=== PATIENT | female | born 1965 | race Caucasian/White ===

== ENCOUNTER 2016-11-11 05:53 | Day surgery (SDC) | payer OTHER ==
[2016-11-05 09:35] VITALS: BMI 25.7
[~2016-11-11 05:53] MED LIST: DEXAMETHASONE SOD PHOSPHATE 10 MG/ML 1 ML VIAL IV ONE; HYDROmorphone 1 MG/ML 1 ML SYRINGE IVP PRN; LACTATED RINGERS 1,000 ML IV SCH; MIDAZOLAM 2 MG/2 ML VIAL IV PRN; ONDANSETRON 4 MG/2 ML VIAL IVP ONE
[2016-11-11] MEDS ORDERED: LACTATED RINGERS 1,000 ML IV ONE (06:40)
[2016-11-11] MEDS ORDERED: LIDOCAINE 1% 20 ML VIAL (10MG/ML) FOR IV START SQ ONE (06:41)
[2016-11-11] MEDS ORDERED: SCOPOLAMINE 1.5MG/72HR PATCH TRANSDERM ONE (06:53)
[2016-11-11] MEDS ORDERED: SODIUM CHLORIDE 0.9% 100 ML BAG ONE (07:27)
[2016-11-11] MEDS ORDERED: LIDOCAINE 1% INJ 10MG/ML (20 ML MDV) ONE (07:27)
[2016-11-11] MEDS ORDERED: fentaNYL (PF) 50 MCG/ML 2 ML AMP ONE (07:27)
[2016-11-11] MEDS ORDERED: MIDAZOLAM 2 MG/2 ML VIAL ONE (07:27)
[2016-11-11] MEDS ORDERED: VASOPRESSIN 20 UNIT/ML 1 ML VIAL ONE (07:27)
[2016-11-11] MEDS ORDERED: ceFAZolin 1,000 MG VIAL ONE (07:27)
[2016-11-11] MEDS ORDERED: PROPOFOL 10 MG/ML 20 ML VIAL IV ONE (07:27)
[2016-11-11] MEDS: ceFAZolin 2 GM in SODIUM CHLORIDE 0.9% 100 ML IVPB ONE ×2 (07:28→07:38)
[2016-11-11] MEDS ORDERED: VASOPRESSIN 20 UNIT/ML 1 ML VIAL IV ONE ×2 (07:52)
[2016-11-11] MEDS ORDERED: BACITRACIN 500 UNIT/GM OINT 28.4 GM TUBE TOPICAL ONE (07:52)
--- NOTE | 2016-11-11 08:39 | P.OP ---
Date of Procedure: 11/11/16 Preoperative Diagnosis: Third degree cervical uterine prolapse Fourth degree cystocele Second-degree rectocele Postoperative Diagnosis: Same Procedure(s) Performed: Total vaginal hysterectomy with anterior colporrhaphy Implants: Anesthesia: spinal Surgeon: Kaitlynn Padilla Toolmaker #1: Joanne Stahl Estimated Blood Loss (ml): 15 IV fluids (ml): 700 Urine output (ml): 200 Pathology: other (Cervix and uterus) Condition: stable Disposition: PACU Indications for Procedure: Symptomatic pelvic prolapse Operative Findings: 30 cervical uterine prolapse, fourth degree cystocele, second-degree rectocele. Small and grossly normal-appearing uterus. Normal-appearing bilateral ovaries. Description of Procedure: After the patient and her family were met in the preoperative holding area and all questions were answered, the patient was taken to the operating room where anesthetic was administered without incident. She was in positioned, prepped and draped in the dorsal lithotomy position. The bladder was drained for approximately 150 mL of clear urine. Weighted speculum was placed in the vagina and the cervix was grasped anteriorly with a single-tooth tenaculum. Dilute vasopressin solution was infused into the vaginal mucosa anteriorly and posteriorly. A circumferential incision was made with the scalpel about the cervix. The anterior and posterior vaginal causes were bluntly dissected away from the underlying cervix. The posterior peritoneum was placed on countertraction and the posterior cul-de-sac was entered sharply. Posterior peritoneum was tagged with a 2-0 Vicryl suture. Long weighted speculum was then placed. The bladder was further advanced anteriorly bluntly. Taurus clamps were utilized to clamp the uterosacral ligaments which were then cut and suture ligated bilaterally. 2-0 Vicryl suture was utilized. The uterine vasculature was then clamped cut and suture ligated bilaterally. The uterus is very small and following ligation of the uterine vasculature the posterior fundus was delivered. A window was made in the anterior peritoneum. The cornual pedicles were clamped, cut and doubly suture ligated. The right and left ovaries were visualized and no gross abnormalities were appreciated. The pedicles were inspected and noted to be hemostatic. The long weighted speculum was removed and the short weighted speculum was replaced. The peritoneum was then closed in a pursestring fashion. The uterosacral ligaments were reapproximated in the midline on incorporating vaginal mucosa to suspend the vagina. The vaginal cuff was then closed posteriorly in an interrupted fashion with 0 Vicryl suture. Attention was then turned to the anterior repair. The anterior vaginal mucosa was delineated using Allis clamps. Dilute vasopressin solution was then injected in the anterior vaginal mucosa. Metzenbaum scissors were utilized to undermine the anterior vaginal mucosa which was then incised in the midline to a level of approximately 2 cm below the urethra. The underlying vesicovaginal tissue was bluntly from the vaginal mucosa. Valiente catheter was then placed and an additional 50 mL of clear urine was obtained. 2-0 Vicryl suture was then utilized to reapproximate the vesicovaginal fascia in an interrupted fashion. Approximate 4 sutures were placed to correct the defect. Excess vaginal mucosa was then trimmed. The vaginal Koza was reapproximated in the midline in a running locked fashion. The vaginal cuff was inspected and was noted to be hemostatic. Bacitracin- soaked packing was then placed in the vagina. Urine in the Valiente catheter was clear. All counts reported to me as correct by the operating room staff. The patient was awoken from anesthetic and transported to the recovery area in stable condition.
[2016-11-11] MEDS ORDERED: ZOLPIDEM 5 MG TAB PO PRN (09:03)
[2016-11-11] MEDS ORDERED: SIMETHICONE 80 MG CHEWABLE PO PRN (09:03)
[2016-11-11] MEDS ORDERED: KETOROLAC 30 MG/ML 1 ML VIAL IVP PRN (09:03)
[2016-11-11] MEDS ORDERED: Acetaminophen-Codeine 300-30mg TAB PO PRN ×2 (09:03)
[2016-11-11] MEDS ORDERED: LACTATED RINGERS 1,000 ML IV SCH (09:03)
[2016-11-11] MEDS ORDERED: IBUPROFEN 600 MG TAB PO PRN (09:03)
[2016-11-11] MEDS ORDERED: ONDANSETRON 4 MG/2 ML VIAL IVP PRN (09:03)
[2016-11-11] MEDS ORDERED: METOCLOPRAMIDE 5 MG/ML 2 ML VIAL IVP PRN (09:03)
[2016-11-11] MEDS: SENNOSIDES-DOCUSATE SODIUM 1 EACH TAB PO SCH ×2 (09:42→20:26)
[2016-11-11] MEDS: diphenhydrAMINE 50 MG/ML 1 ML VIAL IVP PRN ×2 (16:24→22:34)
[2016-11-12 06:18] LABS: Basophils % (A) 0 %; CH 32.4; CHCM 35.4; Eosinophils # (A) 0.1 k/uL (0-0.7); Eosinophils % (A) 2 %; HCT 35.9 % (34.0-46.0); HDW 2.73; HGB 12.7 gm/dL (11.4-16.0); Luc # (Auto) 0.13; Luc % (Auto) 2; Lymphocytes # (A) 1.8 k/uL (1.0-4.8); Lymphocytes % (A) 21 %; MCH 32.6 pg (25.0-35.0); MCHC 35.5 g/dL (31.0-37.0); MCV 91.9 fL (80.0-100.0); Mean Platelet Volume 6.6; Monocytes # (A) 0.4 k/uL (0-1.0); Monocytes % (A) 5 %; Neutrophils # (A) 6.1 k/uL (1.3-7.7); Neutrophils % (A) 71 %; RDW 12.2 % (11.5-15.5); WBC 8.6 k/uL (3.8-10.6); WBC (Perox) 9.03
--- NOTE | 2016-11-12 07:46 | P.DS ---
Providers Expected date of discharge: 11/12/16 Attending physician: Kaitlynn Padilla Primary care physician: Jim Gaytan - Discharge Diagnosis(es) (1) Cystocele with uterine prolapse Current Visit: Yes Status: Acute Hospital Course: This is a 51-year-old woman with symptomatic cystocele and uterine prolapse who is admitted on 11/11/2016 for surgical management. She went to the operating room where she underwent an uncomplicated total vaginal hysterectomy with anterior colporrhaphy done under a spinal anesthetic. Findings at the time of surgery were significant for fourth degree cystocele and third degree cervical uterine prolapse and second-degree rectocele. Please see the operative report for details. Her postoperative course was unremarkable. By the evening of postoperative day 0 she was tolerating a general diet and had ambulated in the hallways. Her pain was well-controlled with her spinal anesthetic. By the morning of postoperative day #1 she continued to do well. Her vital signs were stable. Her postop day 1 hemoglobin was 12.9. Her vaginal packing was removed and she had a scant amount of vaginal bleeding. Her Valiente catheter was removed and voiding trials were initiated. She continued to tolerate a general diet without nausea or vomiting. She is ambulating without difficulty. She was discharged home pending successful voiding trials. Procedures: Total vaginal hysterectomy with anterior colporrhaphy Patient Condition at Discharge: Good Plan - Discharge Summary New Discharge Prescriptions: Acetaminophen-Codeine 300-30mg [Tylenol w/codeine #3] 1 each PO Q4HR PRN #20 tab PRN Reason: Moderate Pain Discharge Medication List Calcium/Magnesium/Zinc [Dwznunv-Kjeapqwqt-Xwww Tablet] 2 each PO DAILY 11/05/16 [History] Vitamin B Complex 1 each PO DAILY 11/05/16 [History] Acetaminophen-Codeine 300-30mg [Tylenol w/codeine #3] 1 each PO Q4HR PRN #20 tab 11/12/16 [Rx] Ibuprofen [Motrin] 600 mg PO Q6HR PRN #0 tab 11/12/16 [Rx] Sennosides-Docusate Sodium [Senokot-S] 2 each PO BID tab 11/12/16 [Rx] Follow up Appointment(s)/Referral(s): Kaitlynn Padilla MD [STAFF PHYSICIAN] - 2 Weeks Activity/Diet/Wound Care/Special Instructions: Follow-up in the office 2 weeks postoperatively or sooner if any concerning signs or symptoms including: Heavy vaginal bleeding, foul vaginal discharge, severe pelvic or abdominal pain, nausea and vomiting, fever greater than 100.5 , redness or swelling of the lower extremities. No intercourse, nothing in the vagina for 6 weeks post operatively. No heavy lifting greater than 10 pounds until seen postoperatively. No driving for 1-2 weeks. Discharge Disposition: HOME SELF-CARE
[2016-11-12] MEDS ORDERED: ACETAMINOPHEN TAB 325 MG TAB PO PRN (08:42)
[2016-11-12] MEDS: SENNOSIDES-DOCUSATE SODIUM 1 EACH TAB PO SCH (08:46)
[2016-11-12 09:05] VITALS: RESP 20
[2016-11-12 13:39] VITALS: BP 112/79; PULSE 68; TEMP 97.3
== END 2016-11-12 13:26 | disposition home or self-care (01) ==
LOC: OR 05:53 → 6PED 08:28 → OR 11-12 13:26
PROVIDERS: ATTEND Obstetrics & Gynecology
DX: N81.3 Complete uterovaginal prolapse (principal); Z87.891 Personal history of nicotine dependence; Z91.09 Other allergy status, other than to drugs and biological substances
CPT/HCPCS: 58260; 88305; 85025; J2250; J1200; J1100; J2405; J0690; J2001; J3010; J2704; 80051; 82565; 82947; 84520; 86850; 86900; 86901; 87086

== ENCOUNTER → 2017-02-19 | Outpatient (CLI) | payer OTHER ==
--- NOTE | 2017-02-19 13:14 | MM ---
Reason for exam: screening (asymptomatic). Last mammogram was performed 1 year and 3 months ago. History: Patient is postmenopausal and had first child at age 29. Took hormonal contraceptives for 15 years. Physical Findings: A clinical breast exam by your physician is recommended on an annual basis and results should be correlated with mammographic findings. MG Screening Mammo w CAD Bilateral CC and MLO view(s) were taken. Prior study comparison: November 06, 2015, bilateral MG screening mammo w CAD. October 06, 2011, bilateral digital screening mammo w/CAD. The breast tissue is heterogeneously dense. This may lower the sensitivity of mammography. There is no discrete abnormality. No significant changes when compared with prior studies. ASSESSMENT: Negative, BI-RAD 1 RECOMMENDATION: Routine screening mammogram of both breasts in 1 year.
== END | disposition home or self-care (01) ==
LOC: RADMAMWWP 11:06
PROVIDERS: ATTEND Family Medicine
DX: Z12.31 Encounter for screening mammogram for malignant neoplasm of breast (principal)

== ENCOUNTER 2017-04-30 08:16 | Day surgery (SDC) | payer OTHER ==
[2017-04-28 10:34] VITALS: BMI 26.2
[~2017-04-30 08:16] MED LIST changes: -DEXAMETHASONE SOD PHOSPHATE 10 MG/ML 1 ML VIAL IV ONE; -HYDROmorphone 1 MG/ML 1 ML SYRINGE IVP PRN; -MIDAZOLAM 2 MG/2 ML VIAL IV PRN; -ONDANSETRON 4 MG/2 ML VIAL IVP ONE
[2017-04-30] MEDS ORDERED: LIDOCAINE 1% 20 ML VIAL (10MG/ML) FOR IV START SQ ONE (08:25)
[2017-04-30 08:30] VITALS: TEMP 97.7
[2017-04-30] MEDS ORDERED: PROPOFOL 10 MG/ML 20 ML VIAL IV ONE (09:32)
[2017-04-30] MEDS ORDERED: LIDOCAINE 1% INJ 10MG/ML (20 ML MDV) ONE (09:32)
--- NOTE | 2017-04-30 09:59 | P.OP ---
Date of Procedure: 04/30/17 Preoperative Diagnosis: Hematochezia Postoperative Diagnosis: Internal hemorrhoids Procedure(s) Performed: Colonoscopy Implants: Anesthesia: FAMILIA Surgeon: Betty Lea Pathology: none sent Condition: stable Disposition: PACU Indications for Procedure: Operative Findings: Normal colon Description of Procedure: The patient was brought to the endoscopy suite and placed in lateral decubitus position. IV sedation was given as per anesthesia team. A timeout was performed to verify correct patient and correct procedure. Perianal examination did not reveal any external hemorrhoids. Digital rectal examination was performed. A well-lubricated endoscope was passed per rectally and was gradually advanced beyond the sigmoid colon, splenic flexure, transverse colon, hepatic flexure and cecum. The ileocecal valve was visualized. Then minimal diverticulosis noted without any evidence of diverticulitis. Scope was gradually withdrawn inspecting all the mucosal surfaces. Normal colon mucosa. Bowel prep was good. No other polyps or masses noted. Retroflexed in the rectum and large internal hemorrhoid was noted which was not bleeding at this time. The scope was gradually withdrawn. Patient tolerated the procedure well and was taken to post anesthesia care unit in stable condition. Recommend repeat colonoscopy in 10 years Plan - Discharge Summary New Discharge Prescriptions: No Action Vitamin B Complex 1 each PO DAILY Calcium/Magnesium/Zinc [Ibhhutn-Kvonwvtaz-Hdpj Tablet] 2 each PO DAILY Ipratropium/Albuterol Sulfate [Combivent Respimat Inhaler] 2 puff INHALATION DAILY PRN PRN Reason: Shortness Of Breath Discharge Medication List Calcium/Magnesium/Zinc [Fohskue-Sxnzaaktq-Goif Tablet] 2 each PO DAILY 11/05/16 [History] Vitamin B Complex 1 each PO DAILY 11/05/16 [History] Ipratropium/Albuterol Sulfate [Combivent Respimat Inhaler] 2 puff INHALATION DAILY PRN 04/28/17 [History]
[2017-04-30 10:27] VITALS: BP 124/80; PULSE 75; RESP 18
== END 2017-04-30 11:30 | disposition home or self-care (01) ==
LOC: ORWHC2ENDO 08:16
PROVIDERS: ATTEND Surgery
DX: K64.8 Other hemorrhoids (principal); K57.30 Diverticulosis of large intestine without perforation or abscess without bleeding; Z87.19 Personal history of other diseases of the digestive system; J45.909 Unspecified asthma, uncomplicated; E11.9 Type 2 diabetes mellitus without complications; Z79.899 Other long term (current) drug therapy; Z91.041 Radiographic dye allergy status; Z87.891 Personal history of nicotine dependence
CPT/HCPCS: 45378; J2001; J2704

== ENCOUNTER → 2019-03-09 | Outpatient (CLI) | payer OTHER ==
[2019-03-09 10:02] LABS: HCT 41.8 % (34.0-46.0); HGB 14.1 gm/dL (11.4-16.0); MCH 31.7 pg (25.0-35.0); MCHC 33.8 g/dL (31.0-37.0); MCV 93.7 fL (80.0-100.0); Mean Platelet Volume 6.5; Platelet Count 277 k/uL (150-450); RBC 4.46 m/uL (3.80-5.40); RDW 12.4 % (11.5-15.5); WBC 4.1 k/uL (3.8-10.6)
[2019-03-09 10:22] LABS: ALT 63 U/L (9-52); AST 41 U/L (14-36); Albumin 4.8 g/dL (3.5-5.0); Alkaline Phosphatase 80 U/L (38-126); Anion Gap 8 mmol/L; Blood Urea Nitrogen 15 mg/dL (7-17); Calcium 9.7 mg/dL (8.4-10.2); Carbon Dioxide 29 mmol/L (22-30); Chloride 102 mmol/L (98-107); Cholesterol 250 mg/dL (<200); Glucose 109 mg/dL (74-99); HDL Cholesterol 44 mg/dL (40-60); LDL Cholesterol,Calculated 169 mg/dL (0-99); Potassium 4.6 mmol/L (3.5-5.1); Sodium 139 mmol/L (137-145); Total Bilirubin 0.9 mg/dL (0.2-1.3); Total Protein 7.6 g/dL (6.3-8.2); Triglycerides 186 mg/dL (<150)
[2019-03-09 10:31] LABS: Appearance,Urine Clear (Clear); Bacteria,Urine Rare /hpf; Bilirubin,Urine Negative (Negative); Blood,Urine Negative (Negative); Color,Urine Yellow; Glucose,Urine (UA) Negative (Negative); Ketones,Urine Negative (Negative); Leukocyte Esterase,Urine Moderate (Negative); Mucus,Urine Occasional /hpf; Nitrite,Urine Negative (Negative); PH, Urine 5.5 (5.0-8.0); Protein,Urine Negative (Negative); RBC,Urine 2 /hpf (0-5); Specific Gravity,Urine 1.027 (1.001-1.035); Squamous Epithelial Cell,Urine 1 /hpf (0-4); Urobilinogen,Urine <2.0 mg/dL (<2.0); WBC,Urine 6 /hpf (0-5)
--- NOTE | 2019-03-10 10:04 | MM ---
Reason for exam: screening (asymptomatic). Last mammogram was performed 2 years and 1 month ago. History: Patient is postmenopausal and had first child at age 29. Took hormonal contraceptives for 15 years. Physical Findings: A clinical breast exam by your physician is recommended on an annual basis and results should be correlated with mammographic findings. MG Screening Mammo w CAD Bilateral CC and MLO view(s) were taken. Prior study comparison: February 19, 2017, bilateral MG screening mammo w CAD. November 06, 2015, bilateral MG screening mammo w CAD. The breast tissue is heterogeneously dense. This may lower the sensitivity of mammography. There are benign appearing oval circumscribed right middle depth upper outer quadrant masses. Stable from 2017. No suspicious abnormality. No significant changes when compared with prior studies. ASSESSMENT: Benign, BI-RAD 2 RECOMMENDATION: Routine screening mammogram of both breasts in 1 year.
== END | disposition home or self-care (01) ==
LOC: RADMAMWWP 08:48
PROVIDERS: ATTEND Family Medicine
DX: Z12.31 Encounter for screening mammogram for malignant neoplasm of breast (principal); Z00.01 Encounter for general adult medical examination with abnormal findings
CPT/HCPCS: 36415; 77067; 80053; 80061; 81001; 85027

== ENCOUNTER → 2020-11-30 | Outpatient (CLI) | payer OTHER ==
--- NOTE | 2020-12-04 09:13 | MM ---
Reason for exam: screening (asymptomatic). Last mammogram was performed 1 year and 9 months ago. History: Patient is postmenopausal and had first child at age 29. Family history of breast cancer in sister at age 52. Took hormonal contraceptives for 15 years. Physical Findings: A clinical breast exam by your physician is recommended on an annual basis and results should be correlated with mammographic findings. MG 3D Screening Mammo W/Cad Bilateral CC and MLO view(s) were taken. Prior study comparison: March 09, 2019, bilateral MG screening mammo w CAD. February 19, 2017, bilateral MG screening mammo w CAD. There are scattered fibroglandular densities. There is chronic nodularity in the left breast. No significant changes when compared with prior studies. ASSESSMENT: Negative, BI-RAD 1 RECOMMENDATION: Routine screening mammogram of both breasts in 1 year.
== END | disposition home or self-care (01) ==
LOC: RADMAMWWP 12:56
PROVIDERS: ATTEND Family Medicine
DX: Z12.31 Encounter for screening mammogram for malignant neoplasm of breast (principal)
CPT/HCPCS: 77063; 77067

== ENCOUNTER → 2023-06-25 | Outpatient (CLI) | payer OTHER ==
[2023-06-25 15:45] LABS: HCT 40.9 % (37.2-46.3); HGB 14.2 d/dL (12.0-15.0); MCH 32.1 pg (27.0-32.0); MCHC 34.7 d/dL (32.0-37.0); MCV 92.5 FL (80.0-97.0); Mean Platelet Volume 9.4 FL (9.5-12.2); NRBC Per 100 WBC 0 X 10*3/uL (0.00-0.01); Platelet Count 258 X 10*3/uL (140-440); RBC 4.42 X 10*6/uL (4.10-5.20); RDW 11.9 % (11.5-14.5); WBC 4.16 X 10*3/uL (4.50-10.00)
[2023-06-25 16:13] LABS: BUN/Creat Ratio 15.12 Ratio (12.00-20.00); Blood Urea Nitrogen 12.1 mg/dL (9.0-27.0); Chloride 102 mmol/L (96-109); Glucose 121 mg/dL (70-110); LDL Cholesterol,Calculated 99.1 mg/dL (0.0-131.0); Potassium 4.7 mmol/L (3.5-5.5); Sodium 139 mmol/L (135-145)
[2023-06-25 16:14] LABS: ALT 37 U/L (8-44); AST 32 U/L (13-35); Albumin 4.9 d/dL (3.8-4.9); Albumin/Globulin Ratio 1.81 Ratio (1.60-3.17); Alkaline Phosphatase 78 U/L (41-126); Calcium 9.9 mg/dL (8.7-10.3); Carbon Dioxide 25.9 mmol/L (21.6-31.8); Globulin 2.7 d/dL (1.6-3.3); Total Bilirubin 0.7 mg/dL (0.3-1.2); Total Protein 7.6 d/dL (6.2-8.2)
== END | disposition home or self-care (01) ==
LOC: LABWHC1 10:17
PROVIDERS: ATTEND Family Medicine
DX: Z00.01 Encounter for general adult medical examination with abnormal findings (principal); R73.01 Impaired fasting glucose
CPT/HCPCS: 36415; 80053; 80061; 83036; 85027

== ENCOUNTER → 2023-07-06 | Outpatient (CLI) | payer OTHER ==
--- NOTE | 2023-07-07 10:45 | MM ---
Reason for Exam: Screening (asymptomatic). Last screening mammogram was performed 12 month(s) ago. Patient History: Menarche at age 10. First Full-Term at age 29. Late child-bearing (after 30). Hysterectomy at age 52. Postmenopausal. Patient used Hormonal Contraceptives for 15 years. Sister had breast cancer, age 52. Risk Values: Cher 5 year model risk: 2.8%. NCI Lifetime model risk: 14.6%. Prior Study Comparison: 03/09/2019 Bilateral Screening Mammogram, [facility]. 11/30/2020 Bilateral Screening Mammogram, [facility]. 07/04/2022 Bilateral MG 3D screening mammo w/cad, [facility]. Tissue Density: There are scattered fibroglandular densities. Findings: Analyzed By CAD. There is no suspicious group of microcalcifications or new suspicious mass in either breast. Overall Assessment: Negative, BI-RAD 1 Management: Screening Mammogram of both breasts in [address] [facility] will attempt to contact patient to return for supplemental views and ultrasound if indicated. Patient should continue monthly self-breast exams. A clinical breast exam by your physician is recommended on an annual basis. This exam should not preclude additional follow-up of suspicious palpable abnormalities. Note on Cher scores and lifetime risk: 1. A Cher score greater than 3% is considered moderate risk. If this is the case, consider specialist referral to assess eligibility for a risk reducing agent. 2. If overall lifetime risk for the development of breast cancer is 20% or higher, the patient may qualify for future screening with alternating mammogram and breast MRI. Electronically signed and approved by: Elpidio Bartlett DO
== END | disposition home or self-care (01) ==
LOC: RADMAMWWP 09:05
PROVIDERS: ATTEND Family Medicine
DX: Z12.31 Encounter for screening mammogram for malignant neoplasm of breast (principal); Z78.0 Asymptomatic menopausal state; Z80.3 Family history of malignant neoplasm of breast
CPT/HCPCS: 77063; 77067

== ENCOUNTER → 2023-12-24 | Outpatient (CLI) | payer OTHER ==
[2023-12-24 16:07] LABS: ALT 42 U/L (8-44); AST 28 U/L (13-35); Albumin 4.8 g/dL (3.8-4.9); Albumin/Globulin Ratio 1.71 Ratio (1.60-3.17); Alkaline Phosphatase 87 U/L (41-126); BUN/Creat Ratio 16.12 Ratio (12.00-20.00); Blood Urea Nitrogen 12.9 mg/dL (9.0-27.0); Calcium 10.6 mg/dL (8.7-10.3); Carbon Dioxide 27.1 mmol/L (21.6-31.8); Chloride 99 mmol/L (96-109); Chol/HDL Ratio 4.93 Ratio; Globulin 2.8 g/dL (1.6-3.3); Glucose 150 mg/dL (70-110); LDL Cholesterol,Calculated 96.2 mg/dL (0.0-131.0); Potassium 4.7 mmol/L (3.5-5.5); Sodium 140 mmol/L (135-145); Total Bilirubin 0.5 mg/dL (0.3-1.2); Total Protein 7.6 g/dL (6.2-8.2)
== END | disposition home or self-care (01) ==
LOC: LABWHC1 09:26
PROVIDERS: ATTEND Family Medicine
DX: E55.9 Vitamin D deficiency, unspecified (principal); E78.2 Mixed hyperlipidemia; R73.01 Impaired fasting glucose
CPT/HCPCS: 36415; 80053; 80061; 82306; 83036

== ENCOUNTER → 2024-08-11 | Outpatient (CLI) | payer OTHER ==
--- NOTE | 2024-08-12 14:11 | MM ---
Reason for Exam: Screening (asymptomatic). Last mammogram was performed 1 year(s) and 2 month(s) ago. Patient History: Menarche at age 10. First Full-Term at age 29. Late child-bearing (after 30). Hysterectomy at age 52. Postmenopausal. Patient used Hormonal Contraceptives for 15 years. Sister had breast cancer, age 52. Risk Values: Cher 5 year model risk: 3.0%. NCI Lifetime model risk: 13.9%. Prior Study Comparison: 11/30/2020 Bilateral Screening Mammogram, [facility]. 07/04/2022 Bilateral MG 3D screening mammo w/cad, [facility]. 07/06/2023 Bilateral MG 3D screening mammo w/cad, [facility]. Tissue Density: The breasts are heterogeneously dense, which may obscure small masses. Findings: Analyzed By CAD. There is no suspicious group of microcalcifications or new suspicious mass in either breast. Overall Assessment: Negative, BI-RAD 1 Management: Screening Mammogram of both breasts in 1 year. . Patient should continue monthly self-breast exams. A clinical breast exam by your physician is recommended on an annual basis. This exam should not preclude additional follow-up of suspicious palpable abnormalities. Note on Cher scores and lifetime risk: 1. A Cher score greater than 3% is considered moderate risk. If this is the case, consider specialist referral to assess eligibility for a risk reducing agent. 2. If overall lifetime risk for the development of breast cancer is 20% or higher, the patient may qualify for future screening with alternating mammogram and breast MRI. [facility], , 08/12/2024 2:08 PM. Electronically signed and approved by: Renzo Huynh M.D. [facility]
== END | disposition home or self-care (01) ==
LOC: RADMAMWWP 11:59
PROVIDERS: ATTEND Family Medicine
DX: Z12.31 Encounter for screening mammogram for malignant neoplasm of breast
CPT/HCPCS: 77063; 77067